=== PATIENT | male | born 1980 | race Caucasian/White ===

== ENCOUNTER 2024-10-30 07:02 | Day surgery (SDC) | payer MEDICAID ==
[~2024-10-30 07:02] MED LIST: Sodium Chloride 0.9% 10 ML Syringe FLUSH PRN
[2024-10-30] MEDS ORDERED: Propofol 200 MG/20 ML SDV IV ONE (07:03)
[2024-10-30] MEDS ORDERED: Midazolam 1 MG/ML 2 ML SDV IV ONE (07:03)
[2024-10-30] MEDS ORDERED: Ketamine 500 mg/10 ML MDV IV ONE (07:03)
[2024-10-30] MEDS: Lactated Ringers 1,000 ML IV SCH (07:52)
[2024-10-30] MEDS: Simethicone Drops 40 MG/0.6 ML 30 ML Bottle ONE (08:29)
== END 2024-10-30 09:41 | disposition home or self-care (01) ==
LOC: FB.SDS 07:02
PROVIDERS: ATTEND Surgery
DX: Z12.11 Encounter for screening for malignant neoplasm of colon (principal); K57.30 Diverticulosis of large intestine without perforation or abscess without bleeding; E66.9 Obesity, unspecified; E11.9 Type 2 diabetes mellitus without complications; Z68.41 Body mass index [BMI] 40.0-44.9, adult
CPT/HCPCS: 00812; A9270-GY; J2250; J2704; J3490; J7120